=== PATIENT | female | born 1975 | race African-American/Black ===

== ENCOUNTER 2019-03-06 10:04 | Emergency (ER) | payer BC ==
[~2019-03-06] VITALS: Ht 152.4 cm; Wt 69.0 kg
[2019-03-06] MEDS ORDERED: ACETAMINOPHEN 325MG TABLET PO ONE (14:00)
[2019-03-06] MEDS ORDERED: ONDANSETRON 4MG ODT PO ONE (14:00)
[2019-03-06] MEDS ORDERED: KETOROLAC 30MG/ML VIAL IM ONE (14:00)
[2019-03-06] MEDS ORDERED: DIPHENHYDRAMINE 50MG CAPSULE PO ONE (14:00)
[2019-03-06 14:30] VITALS: BP 133/91
== END 2019-03-06 14:30 | disposition home or self-care (01) ==
LOC: ER 10:04
DX: G43.909 Migraine, unspecified, not intractable, without status migrainosus (principal); E05.90 Thyrotoxicosis, unspecified without thyrotoxic crisis or storm; Z85.3 Personal history of malignant neoplasm of breast; Z88.8 Allergy status to other drugs, medicaments and biological substances; Z98.890 Other specified postprocedural states
CPT/HCPCS: 81025; 96372; 99284; J1885; Q0162; Q0163